=== PATIENT | female | born 1965 | race Caucasian/White ===

== ENCOUNTER 2017-02-26 13:46 | Observation (INO) | payer BC ==
[~2017-02-26] VITALS: Ht 152.4 cm; Wt 65.2 kg
--- NOTE | 2017-02-26 14:03 | NUR ---
PT TO ROOM FOR TREATMENT
--- NOTE | 2017-02-26 14:12 | NUR ---
INTRODUCED SELF TO PT. PT REPORTS SUDDEN ONSET OF RIGHT UPPER CHEST PAIN. PAIN IS REPRODUCIBLE AND WORSENS UPON DEEP INSPIRATION. DENIES ANY SOB, SA02 100% ON RA. PT WAS DX WITH THE FLU 1 WEEK PRIOR AND REPORTS CONTINUED COUGH/CONGESTION. PT ALSO REPORT VOMITING X 1 TODAY AND 3 BOUTS OF DIARRHEA. PT AWARE OF PLAN OF CARE AND WAIT TIME. CALL LOVE WITHIN REACH.
--- NOTE | 2017-02-26 14:25 | NUR ---
#22 IV STARTED IN [facility]. LABS DRAWN. FLU AND STREP SWABS COLLETED. TOLERATED WELL. UPDATED ON PLAN OF CARE. DENIES ANY NEEDS AT THIS TIME. CALL LIGHT WITHINR EACH.
--- NOTE | 2017-02-26 15:00 | NUR ---
PT RESTING COMFORTABLY IN STRETCHER IN NAD. PO FLUIDS OFFERED, PT DECLINED. WILL CONTINUE TO MONITOR. CALL LOVE WITHIN REACH.
[2017-02-26 15:07] LABS: HEMATOCRIT 44.2 % (37.0-47.0); HEMOGLOBIN 14.9 g/dl (12.0-16.0); IMMATURE GRANULOCYTES 0.4 % (0.0-1.0); MEAN CELL VOLUME 91.7 fL CALC (80.0-100.0); MEAN CORPUSCULAR HGB 30.9 pG CALC (26.0-32.0); MEAN CORPUSCULAR HGB CONC 33.7 g/L CALC (32.0-36.0); NEUT# 20.59 thou/uL (2.00-7.15); RED BLOOD COUNT 4.82 mill/uL (4.20-5.60)
[2017-02-26 15:13] LABS: INFLUENZA A NONE DETECTED (NONE DETECT); INFLUENZA B NONE DETECTED (NONE DETECT)
[2017-02-26 15:19] LABS: ALBUMIN 4.8 g/dL (3.2-5.0); ALKALINE PHOSPHATASE 97 u/l (38-126); ANION GAP 18 (6-22 (CALC)); BILIRUBIN, TOTAL 0.5 mg/dL (0.0-1.4); BUN 9 mg/dL (7-17); BUN/CREATININE RATIO 13 (12-20 (CALC)); CARBON DIOXIDE 22 mmol/l (22-30); CHLORIDE 102 mmol/l (95-108); CREATININE 0.7 mg/dL (0.5-1.0); GFR > 60 ML/MIN (>=60 (CALC)); GFR FOR AFR.AMER. > 60 ML/MIN (>=60 (CALC)); GLUCOSE 105 mg/dL (65-105); POTASSIUM 4.4 mmol/l (3.5-5.1); SGOT/AST 39 u/l (14-36); SGPT/ALT 87 u/l (9-52); SODIUM 138 mmol/l (137-146); TOTAL PROTEIN 7.3 g/dL (6.3-8.2)
[2017-02-26 15:30] LABS: MYOGLOBIN 33 ng/mL (0 - 62)
--- NOTE | 2017-02-26 15:50 | NUR ---
IV FLUDIS INFUSING WITH NO DIFFICULTY, IV SITE FREE FROM REDNESS OR EDEMA. PT REPORTS PAIN IS NOW 3/10. TEMP 100.1. NOTIFIED, AWAITING NEW ORDERS.
[2017-02-26] MEDS ORDERED: SYNTHROID125 MCG PO (16:33)
[2017-02-26] MEDS ORDERED: CYTOMEL5 MCG PO (16:35)
--- NOTE | 2017-02-26 16:35 | NUR ---
PT AWARE OF PENDING ADMISSION AND WAIT TIME. IV FLUIDS INFUSING WITH NO DIFFICULTY. PT DENIES ANY NEEDS AT THIS TIME.
--- NOTE | 2017-02-26 16:43 | NUR ---
SBAR PRINTED TO FLOOR
--- NOTE | 2017-02-26 16:50 | NUR ---
TEMP RECHECK 98.7. PT AWARE OF PENDING ADMIT, WILL CONTINUE TO MONITOR.
--- NOTE | 2017-02-26 16:55 | NUR ---
REPORT CALLED TO JEREMÍAS MENDOZA.
--- NOTE | 2017-02-26 17:05 | NUR ---
FROM ER VIA WHEELCHAIR ACCOMPANIED BY DAHLIA MENDOZA. AMBULATED TO BED WITH STEADY GAIT. RESPS EVEN AND UNLABORED ON ROOM AIR. REPORTS RIGHT SIDED CHEST PAIN 3/10 ON 0-10 PAIN SCALE, WILL MEDICATE PER MAR. ORIENTED TO ROOM AND CALL SYSTEM. SAFETY PRECAUTIONS REINFORCED. BED IN LOWEST POSITION WITH WHEELS LOCKED. CALL LIGHT WITHIN REACH. WILL CONTINUE TO MONITOR.
--- NOTE | 2017-02-26 17:10 | NUR ---
Admission Note Report Given to: REJI DELEON Transported by: X Wheelchair Stretcher Transported with: X Nurse Transporter X Patent IV O2 X Civil Engineer
[2017-02-26 17:23] VITALS: BP 133/82
--- NOTE | 2017-02-26 17:50 | NUR ---
DR ALMARAZ IN TO SEE PT, NEW ORDERS RECEIVED.
[2017-02-26 18:30] VITALS: BP 132/84
--- NOTE | 2017-02-26 18:35 | NUR ---
MEDICATED WITH MOTRIN 600MG PO FOR C/O RIGHT SIDED CHEST PAIN. FAMILY AT BEDSIDE. WILL CONTINUE TO MONITOR.
--- NOTE | 2017-02-26 20:15 | NUR ---
PT RESTING IN HIGH FOWLERS POSITION WITH FAMILY AT BEDSIDE;PT COMPLAINS OF SLIGHT PAIN, 2/10 ON THE PAIN SCALE,TO UPPER RIGHT CHEST;PT ALSO COMPLAINS OF LOWER ABDOMINAL CRAMPING THAT HAS NOW SUBSIDED SINCE USING THE RESTROOM;ASSESSMENT COMPLETED;#22G TO RAC INFUSING NS @ 100ML/HR WELL,SITE APPEARS TO BE FREE FROM EDEMA;TELE MONITOR IN PLACE;SKIN INTACT;PEDAL PULSES STRONG ON PALPATION;RESPIRATIONS EVEN AND UNLABORED ON RA;PT DENIES ANY NEEDS AT THIS TIME AND IS EDUCATED TO CALL FOR ASSISTANCE IF NEEDED;CALL LIGHT IN REACH;WILL CONTINUE TO MONITOR
--- NOTE | 2017-02-26 22:10 | NUR ---
PT COMPLAINS OF UPPER RIGHT CHEST PAIN RATING 7/10 ON THE PAIN SCALE AND REQUEST PAIN MEDICATION;PT MEDICATED WITH TYLENOL 650MG PO PER MAR;WILL CONTINUE TO MONITOR FOR EFFECTIVENESS
[2017-02-26 23:51] VITALS: BP 120/76
--- NOTE | 2017-02-27 00:20 | NUR ---
LAB AT BEDSIDE;PT REPORTS FEELING BETTER STATING PAIN LEVEL IS NOW 2/10 ON THE PAIN SCALE;RESPIRATIONS EVEN AND UNLABORED ON RA;IV FLUIDS INFUSING WELL TO RAC;PT RE-EDUCATED TO CALL FOR ASSISTANCE IF NEEDED;CALL LIGHT IN REACH;WILL CONTINUE TO MONITOR
--- NOTE | 2017-02-27 02:15 | NUR ---
PT COMPLAINS OF RIGHT SIDED CHEST PAIN RATING 4/10 ON THE PAIN SCALE AND REQUESTS PAIN MEDOCATION;PT MEDICATED WITH PRN MOTRIN 600MG PO;WILL MONITOR FOR EFFECT
--- NOTE | 2017-02-27 04:50 | NUR ---
PT APPEARS TO BE SLEEPING IN SEMI FOWLERS POSITION;PT RESPONDS TO VERBAL STIMULI;IV FLUIDS INFUSING WELL TO RAC;TELE MONITOR IN PLACE;PT VOICES NO COMPLAINTS AT THIS TIME;RESPIRATIONS EVEN AND UNLABORED ON RA;CALL LIGHT IN REACH;WILL CONTINUE TO MONITOR
[2017-02-27 05:23] VITALS: BP 115/78
[2017-02-27 06:33] LABS: HEMATOCRIT 37.8 % (37.0-47.0); HEMOGLOBIN 12.7 g/dl (12.0-16.0); MEAN CELL VOLUME 91.7 fL CALC (80.0-100.0); MEAN CORPUSCULAR HGB 30.8 pG CALC (26.0-32.0); MEAN CORPUSCULAR HGB CONC 33.6 g/L CALC (32.0-36.0); RED BLOOD COUNT 4.12 mill/uL (4.20-5.60); RED CELL DISTRI WIDTH 13.2 % (11.5-15.5)
[2017-02-27 06:48] LABS: ANION GAP 13 (6-22 (CALC)); BUN 6 mg/dL (7-17); BUN/CREATININE RATIO 9 (12-20 (CALC)); CALCIUM 9.3 mg/dL (8.4-10.2); CALCULATED LDLCHOLESTEROL 69 mg/dL (62-129 (CALC)); CARBON DIOXIDE 21 mmol/l (22-30); CHOLESTEROL HDL RATIO 3.1 (<4.4 (CALC)); CREATININE 0.7 mg/dL (0.5-1.0); GFR > 60 ML/MIN (>=60 (CALC)); GFR FOR AFR.AMER. > 60 ML/MIN (>=60 (CALC)); GLUCOSE 94 mg/dL (65-105); HDL CHOLESTEROL 43 mg/dL (>=40); POTASSIUM 4.1 mmol/l (3.5-5.1); SODIUM 142 mmol/l (137-146); TOTAL CHOLESTEROL 131 mg/dl (0-199); TOTAL TRIGLYCERIDES 94 mg/dl (30-149); VLDL CHOLESTROL 19 mg/dl (2-49 (CALC))
[2017-02-27 06:52] LABS: CHLORIDE 112 mmol/l (95-108)
--- NOTE | 2017-02-27 07:00 | NUR ---
RECEIVED BEDSIDE REPORT FROM CARMINA APPLE. RESTING IN SEMI FOWLERS WITH EYES CLOSED, AWAKENS EASILY. RESPS EVEN AND UNLABORED ON ROOM AIR, TELE MONITOR IN PLACE. #22 LAC INFUSING WITHOUT DIFFICULTY, SITE APPEARS HEALTHY. VOICES NO NEEDS AT THIS TIME. PLAN OF CARE DISCUSSED. SAFETY PRECAUTIONS REINFORCED. BED IN LOWEST POSITION WITH WHEELS LOCKED. CALL LIGHT WITHIN REACH. ENCOURAGED PT TO CALL FOR ANY NEEDS.
[2017-02-27 08:48] VITALS: BP 119/65
--- NOTE | 2017-02-27 08:55 | NUR ---
RESTING IN HIGH FOWLERS WATCHING TV. RESPS EVEN AND UNLABORED ON ROOM AIR, TELE MONITOR IN PLACE. MEDICATED WITH MOTRIN PO FOR C/O 4/10 RIGHT SIDED CHEST PAIN WITH INSPIRATION. CALL LIGHT WITHIN REACH. WILL CONTINUE TO MONITOR.
[2017-02-27 11:30] VITALS: BP 114/72
--- NOTE | 2017-02-27 11:30 | NUR ---
MEDICATED WITH TYLENOL PO FOR 06/04 PARKER. PO FLUIDS OFFERED. CALL LIGHT WITHIN REACH.
--- NOTE | 2017-02-27 11:45 | NUR ---
DR ALMARAZ IN TO SEE PT, NEW ORDERS RECEIVED.
--- NOTE | 2017-02-27 12:17 | NUR ---
TO RADIOLOGY IN STABLE CONDITION VIA WHEELCHAIR ACCOMPANIED BY VOLUNTEER.
--- NOTE | 2017-02-27 12:30 | NUR ---
RETURNED FROM RADIOLOGY VIA WHEELCHAIR ACCOMPANIED BY VOLUNTEER. AMBULATED TO BED WITH STEADY GAIT. RESPS EVEN AND UNLABORED ON ROOM AIR, TELE MONITOR IN PLACE. #22 RAC FLUSHES WELL, NO REDNESS OR EDEMA NOTED AT SITE. CALL LIGHT STEVE COYLE. WILL CONTINUE TO MONITOR.
[2017-02-27 15:53] VITALS: BP 118/70
--- NOTE | 2017-02-27 16:00 | NUR ---
RESTING IN BED WITH EYES CLOSED, AWAKENS EASILY. RESPS EVEN AND UNLABORED ON ROOM AIR, TELE MONITOR IN PLACE. DENIES PAIN OR DISCOMFORT. CALL LIGHT WITHIN REACH. WILL CONTINUE TO MONITOR.
[2017-02-27] MEDS ORDERED: LEVAQUIN750 MG PO (17:23)
[2017-02-27] MEDS ORDERED: IBUPROFEN600 MG PO (17:23)
--- NOTE | 2017-02-27 19:00 | NUR ---
RECEIVED CHANGE OF SHIFT REPORT FROM REJI VERONICA. PATIENT ALERT AND ORIENTED X 3. PT LYING IN BED AND APPEARS NOT TO BE IN ANY APPARENT ACUTE DISTRESS OR DISCOMFORT. WILL CONTINUE TO MONITOR.
--- NOTE | 2017-02-27 19:47 | NUR ---
DISCHARGE INSTRUCTIONS GIVEN TO PATIENT. PT VERBALIZED UNDERSTANDING. IV REMOVED AND TIP CAME OUT INTACT. PRESSURE APPLIES TO SITE. TAPE OVER GAUZE APPLIED TO SITE. VS [id number]- 123/74. PT LEFT THE FLOOR IN STABLE CONDITION VIA WHEELCHAIR AND ACCOMPANIED BY DIRECTOR OF CONSERVATION.
--- NOTE | 2017-02-27 20:26 | NUR ---
Discharge instructions given. Patient verbalizes understanding of same. Discharged in STABLE CONDITION TO HOME. PATIENT LEFT THE FLOOR VIA WHEELCHAIR AND ACCOMPANIED BY LAWYER REAL [employer]STATE. VS [id number]/74. ALL BELONGING SENT WITH PATIENT.
== END 2017-02-27 19:47 | disposition home or self-care (01) | DRG 195 ==
LOC: ED 13:46 → ED-I 16:15 → ED 16:40 → MS2 16:41
PROVIDERS: Emergency Medicine; ADMIT Internal Medicine; ATTEND Internal Medicine
DX: J18.9 Pneumonia, unspecified organism (principal); E03.9 Hypothyroidism, unspecified; F17.210 Nicotine dependence, cigarettes, uncomplicated
CPT/HCPCS: G0378